=== PATIENT | female | born 2000 | race Caucasian/White ===

== ENCOUNTER 2018-08-27 20:03 | Emergency (ER) | payer OTHER | END 2018-08-27 22:20 | disposition home or self-care (01) | LOC: ER 20:03 ==

== ENCOUNTER → 2018-08-30 | Outpatient (CLI) | payer OTHER ==
[~2018-08-30] MED LIST: ASPI-586 PO; [UNRECOGNIZED DRUG - CODE] TP
--- NOTE | 2018-08-30 10:16 | Diagnostic Imaging Report ---
INDICATION: Left leg pain. Left leg venous Doppler study was performed in the routine fashion with color flow Doppler and waveform analysis. FINDINGS: The left common femoral vein, superficial femoral vein, popliteal vein and visualized portion of the posterior tibial vein show normal compressibility and venous flow patterns. There is normal augmentation. IMPRESSION: No evidence of deep vein thrombosis of the major veins of the left leg. Dictated by: Dictated on workstation # [id number]
--- NOTE | 2018-08-30 10:23 | Diagnostic Imaging Report ---
INDICATION: Left leg pain, history of popliteal artery bypass. TECHNIQUE: The left leg arterial Doppler study was performed in the routine fashion with color flow Doppler and waveform analysis. FINDINGS: The left common femoral artery and profundus femoris artery are patent with triphasic flow. The left SFA is patent with triphasic flow. The redding popliteal artery appears to be occluded. The popliteal artery bypass is patent although does show somewhat slow flow. The tibial vessels are patent. IMPRESSION: The redding popliteal artery is occluded. The popliteal bypass is patent although does show somewhat slow flow. Correlate with clinical findings. Dictated by: Dictated on workstation # [id number]
== END ==
LOC: RAD 09:02
PROVIDERS: ATTEND Nurse Practitioner Family
DX: I70.202 Unspecified atherosclerosis of native arteries of extremities, left leg (principal); Z95.820 Peripheral vascular angioplasty status with implants and grafts; Z86.718 Personal history of other venous thrombosis and embolism
CPT/HCPCS: 93926